=== PATIENT | female | born 1955 ===

== ENCOUNTER 2016-11-30 06:46 | Day surgery (SDC) | payer OTHER ==
[2016-11-30] VITALS (11 sets, daily range): BP systolic 92–150; BP diastolic 52–79
[~2016-11-30] VITALS: Ht 157.5 cm; Wt 63.5 kg
[~2016-11-30 06:46] MED LIST: ASPIR 8181 MG ORAL; Bupivacaine 0.25% Inj 30ml INJ ONE; Bupivacaine w/Epi 0.5% 30ml Vial INJ ONE; CALCIUM 600 +1 EAC2 PO; ENALAPRIL MALEA20 MG ORAL; EPINEPHrine 1mg/1ml Amp ONE; IBUPROFEN400 M1 PO; Kenalog-40 1ml Vial ONE; Ketorolac 30mg Inj ONE; Lidocaine 1% 10mg/ml/Epi 0.005mg/ml 30ml vial INJ ONE; Morphine Sulfate PF 10 ML ONE; SIMVASTATIN20 MG ORAL; ceFAZolin 1gm in D5W 55ml IVP ONE; celeBREX 200mg Cap **SURGERY PATIENTS ONLY ORAL ONE; oxyCONTIN 20mg tab ORAL ONE
--- NOTE | 2016-11-30 07:13 | Operative Note - PDOC ---
Operative Note Operative Note Pre-op Diagnosis: right knee chondral damage Procedure: right knee arthroscopy Post-op Diagnosis: same as pre-op plus Operative Findings: consistent w/pre-op dx studies Anesthesia: MAC Specimen: none Complications: none Condition: stable Estimated Blood Loss: none Implant(s) used?: No ESTEFANY DIGGS Nov 30, 2016 07:13
--- NOTE | 2016-11-30 07:13 | Pre-Procedure Note/Attestation ---
Pre-Procedure Note/Attestation Complete Prior to Procedure Planned Procedure: right Procedure Narrative: knee diagnostic arthrscopy, possible synovectomy, possible chondroplasty Indications for Procedure Pre-Operative Diagnosis: right knee chondral damage Attestation I attest that I discussed the nature of the procedure; its benefits; risks and complications; and alternatives (and the risks and benefits of such alternatives ), prior to the procedure, with the patient (or the patient's legal automotive leasing sales representative). I attest that, if there was a reasonable possibility of needing a blood transfusion, the patient (or the patient's legal automotive leasing sales representative) was given the [facility] standardized written summary, pursuant to the Mark Fajardo Blood Safety Act ([place] Health and Safety Code # 1645, as amended). I attest that I re-evaluated the patient just prior to the surgery and that there has been no change in the patient's H&P, except as documented below: ESTEFANY DIGGS Nov 30, 2016 07:13
[2016-11-30] MEDS ORDERED: celeBREX 200mg Cap **SURGERY PATIENTS ONLY ORAL ONE (08:04)
[2016-11-30] MEDS ORDERED: Sterile Water Irrig 1000ml IRRIG ONE (08:30)
[2016-11-30] MEDS ORDERED: Propofol 10mg/ml 20ml IV ONE (08:30)
[2016-11-30] MEDS ORDERED: LR 1000ml ONE (08:30)
[2016-11-30] MEDS ORDERED: NS Irrig 4000ml IRRIG ONE (08:30)
[2016-11-30] MEDS ORDERED: fentaNYL 100 mcg/2 mL IV ONE (08:30)
[2016-11-30] MEDS ORDERED: Hydromorphone 0.5mg/0.5ml inj IVP PRN (09:00)
[2016-11-30] MEDS ORDERED: Ketorolac 30mg Inj IV PRN (09:00)
[2016-11-30] MEDS ORDERED: fentaNYL 100 mcg/2 mL IV PRN (09:00)
--- NOTE | 2016-11-30 09:33 | Immediate Post-Op Evaluation ---
Immediate Post-Op Evalulation Immediate Post-Op Evalulation Procedure: right knee arthroscopy Date of Evaluation: Nov 30, 2016 Time of Evaluation: 09:33 Nausea: No Vomiting: No Given Within 1 Hr of Incision: Yes Jono Sawyer MD Nov 30, 2016 09:33
--- NOTE | 2016-11-30 10:07 | 48 Hour Post Anesthesia Eval ---
Post Anesthesia Evaluation Procedure: right knee arthroscopy Date of Evaluation: Nov 30, 2016 Time of Evaluation: 10:06 Nausea: No Vomiting: No Follow-up care needed: N/A Jono Sawyer MD Nov 30, 2016 10:06
[2016-11-30] MEDS ORDERED: HYDROmorphone 1mg/ml Carpuject SUBQ PRN (17:01)
[2016-11-30] MEDS ORDERED: D5 1/2NS 1,000 ML IV SCH (17:01)
[2016-11-30] MEDS ORDERED: Tylenol #3 tab (300mg/30mg) ORAL PRN (17:01)
[2016-11-30] MEDS ORDERED: Norco 5mg/325mg tab ORAL PRN (17:01)
--- NOTE | 2016-11-30 17:01 | Operative Note - Dictated ---
DATE OF OPERATION: 11/30/2016 PREOPERATIVE DIAGNOSIS: Right knee chondral damage. POSTOPERATIVE DIAGNOSIS: Right knee chondral damage. PROCEDURES: 1. Right knee arthroscopy, synovectomy, lateral patellofemoral compartment. 2. Microfracture, medial femoral condyle. SURGEON: Kolby Kumar M.D. ANESTHESIA: General. Indication For Procedure: The patient is a pleasant 61-year-old female, who was diagnosed with medial compartment chondral damage. She had continued pain with weightbearing. She was 00:29 right knee arthroscopy, possible chondroplasty. Risks, limitations, expectations, and complications of the procedure were discussed in detail. All questions were addressed. DESCRIPTION OF PROCEDURE: Informed consent was obtained. The patient was brought to the operating room and placed under general anesthesia. Ancef was administered. Right leg was prepped and draped in a sterile manner. Time-out was performed. A 0.25% Marcaine injected into the right knee. Portal sites injected with 1% lidocaine with epinephrine. A lateral stab incision was then made. Trocar was introduced into the knee joint. A systematic 00:53 was performed a synovectomy. This showed some chondral damage in the lateral compartment. Hypertrophic synovial tissue in the retropatellar fat pad area as well as medial compartment. Medial compartment was entered. Medial working portal was established and the synovectomy within the anterior compartment was performed. Once this was done, the medial meniscus probed, noted to be intact. There is an area of approximately 15 x 10 mm linear fissure along the posterior medial aspect of the femoral condyle. This was primarily weightbearing in extension. There was no obvious 01:36 softening the adjacent cartilage, but no gross chondral flaps. Given that she is symptomatic for some period of time. Chondroplasty was performed. A K-wire was then used to drill three holes along the linear fissure 01:52 biologic healing. Once that was done, intercondylar notch was entered. The ligamentum mucosum debrided 01:59 ACL, which was intact. Lateral compartment was entered. 02:04 meniscal chondral damage. At this point, the camera was removed. The patient had a 02:08 block and that the intraarticular injection was not able to be given. The patient was therefore taken to recovery room with stable vital signs. ESTIMATED BLOOD LOSS: None. COMPLICATIONS: None. SPECIMENS: None. IMPLANTS: None. Kolby Kumar M.D. DR: PHYLICIA JOB#: [id number] CC:
== END 2016-11-30 15:40 | disposition home or self-care (01) ==
LOC: SUR 06:46
DX: M23.91 Unspecified internal derangement of right knee (principal); I10 Essential (primary) hypertension; E78.00 Pure hypercholesterolemia, unspecified; J30.9 Allergic rhinitis, unspecified; Z91.041 Radiographic dye allergy status; Z98.51 Tubal ligation status; Z90.710 Acquired absence of both cervix and uterus
CPT/HCPCS: 29876; 29879; 97161; J0171; J0690; J1885; J2274; J2704; J3010; J3301; J3490; J7120; 94003; 94150